=== PATIENT | male | born 1955 | race Two or more races ===

== ENCOUNTER 2020-04-27 20:09 | Emergency (ER) | payer MEDICAID ==
[~2020-04-27] VITALS: Ht 165.1 cm; Wt 61.2 kg
--- NOTE | 2020-04-27 20:30 | NUR ---
ED Nurse Note: Patient walked into the ED from home with c/o nausea and vomiting onset 3 days. Pt stated he wasnt able to eat and was feeling weak but denies flu like s/sx. Pt stated nausea is caused when he moves his head. Pt denies injury or trauma, denies CP//SOB, N/V/D, fever or chills. Pt is AAOX4 and ambulatory. Placed on monitor bed HPI: 64-year-old male no reported past medical history presents dizziness. He states it started last night. He has feeling of room spinning when he moves his head. Associated with nausea and vomiting. He denies any fevers cough or abdominal pain. He denies any medical history. Denies any headache chest pain or shortness of breath. Allergies:
--- NOTE | 2020-04-27 20:31 | NUR ---
ED Nurse Note: ERMD at bedside
--- NOTE | 2020-04-27 20:44 | Emergency Room Report ---
History of Present Illness General Chief Complaint: Vomiting Source: Patient Present Illness HPI Disclaimer: Please note that this report is being documented using DRAGON technology. This can lead to erroneous entry secondary to incorrect interpretation by the dictating instrument. HPI: 64-year-old male no reported past medical history presents dizziness. He states it started last night. He has feeling of room spinning when he moves his head. Associated with nausea and vomiting. He denies any fevers cough or abdominal pain. He denies any medical history. Denies any headache chest pain or shortness of breath. Allergies: Coded Allergies: No Known Allergies (Unverified , 04/27/20) COVID-19 Screening Contact w/high risk pt: No Experienced COVID-19 symptoms?: Yes COVID-19 Testing performed J[employer] CLE[employer]ER: No Patient History Reviewed Nursing Documentation: PMH: Agreed; PSxH: Agreed Nursing Documentation-PMH Past Medical History: No Stated History Review of Systems All Other Systems: negative except mentioned in HPI Physical Exam Vital Signs Date Time Temp Pulse Resp B/P (MAP) Pulse Ox O2 Delivery O2 Flow Rate FiO2 04/27/20 20:29 98.4 67 20 149/86 (107) 95 Room Air Sp02 EP Interpretation: reviewed, normal General Appearance: well appearing, no apparent distress Head: normocephalic, atraumatic Eyes: bilateral eye PERRL, bilateral eye EOMI ENT: hearing grossly normal, moist mucus membranes Neck: full range of motion, supple Respiratory: lungs clear, normal breath sounds, no rhonchi, no respiratory distress, no retraction, no wheezing Cardiovascular #1: normal peripheral pulses, regular rate, rhythm, no murmur Gastrointestinal: non tender, soft, non-distended, no guarding Neurologic: alert, motor strength/tone normal, technical administrator III-XII nml as tested, oriented x3, cerebellar normal, nystagmus - Noted but fatigable, no focal defects Skin: normal color, warm/dry Medical Decision Making Diagnostic Impression: Primary Impression: Vertigo Additional Impression: Nausea and vomiting ER Course MDM: Differential included but not limited to positional vertigo, dehydration, gastroenteritis, gastritis to name a few Clinical course-IV inserted laboratory studies are sent CT scan ordered. CT scan did not show any acute abnormalities. Patient neurologically intact. Zofran and meclizine given in the ER. On reassessment patient feeling improved. No active vomiting. Ambulatory with a steady gait. We discharged with Zofran as needed, meclizine as needed and follow-up with PMD. Given return pr ecautions. Labs - Laboratory Tests Test 04/27/20 20:45 White Blood Count 11.3 K/UL (4.8-10.8) H Red Blood Count 5.36 M/UL (4.70-6.10) Hemoglobin 16.6 G/DL (14.2-18.0) Hematocrit 44.2 % (42.0-52.0) Mean Corpuscular Volume 82 FL (80-99) Mean Corpuscular Hemoglobin 30.9 PG (27.0-31.0) Mean Corpuscular Hemoglobin Concent 37.5 G/DL (32.0-36.0) H Red Cell Distribution Width 14.4 % (11.6-14.8) Platelet Count 277 K/UL (150-450) Mean Platelet Volume 7.9 FL (6.5-10.1) Neutrophils (%) (Auto) 72.8 % (45.0-75.0) Lymphocytes (%) (Auto) 19.4 % (20.0-45.0) L Monocytes (%) (Auto) 7.1 % (1.0-10.0) Eosinophils (%) (Auto) 0.0 % (0.0-3.0) Basophils (%) (Auto) 0.8 % (0.0-2.0) Sodium Level 136 MMOL/L (136-145) Potassium Level 3.7 MMOL/L (3.5-5.1) Chloride Level 101 MMOL/L (98-107) Carbon Dioxide Level 26 MMOL/L (21-32) Anion Gap 10 mmol/L (5-15) Blood Urea Nitrogen 13 mg/dL (7-18) Creatinine 1.1 MG/DL (0.55-1.30) Estimated Glomerular Filtration Rate > 60 mL/min (>60) Glucose Level 124 MG/DL (74-106) H Calcium Level 8.6 MG/DL (8.5-10.1) Total Bilirubin 0.5 MG/DL (0.2-1.0) Aspartate Amino Transferase (AST) 36 U/L (15-37) Alanine Aminotransferase (ALT) 36 U/L (12-78) Alkaline Phosphatase 109 U/L (46-116) Total Protein 8.2 G/DL (6.4-8.2) Albumin 3.7 G/DL (3.4-5.0) Globulin 4.5 g/dL Albumin/Globulin Ratio 0.8 (1.0-2.7) L Lipase 170 U/L (73-393) On reevaluation: Patient feeling improved Plan-discharge home, follow-up PMD CT/MRI/US Diagnostic Results CT/MRI/US Diagnostic Results : Imaging Test Ordered: CT brain Impression No acute process Last Vital Signs Date Time Temp Pulse Resp B/P (MAP) Pulse Ox O2 Delivery O2 Flow Rate FiO2 04/27/20 20:29 98.4 67 20 149/86 (107) 95 Room Air Status: improved Disposition: HOME, SELF-CARE Condition: Improved Scripts Meclizine Hcl* (MECLIZINE*) 25 Mg Tablet 25 MG ORAL THREE TIMES A DAY PRN for for dizziness, #20 TAB Prov: Sergio Jaime M.D. 04/27/20 Ondansetron (Zofran) 4 Mg Tablet 4 MG ORAL Q8H PRN for Nausea & Vomiting, #20 TAB 0 Refills Prov: Sergio Jaime M.D. 04/27/20 Sergio Jaime M.D. Apr 27, 2020 20:43
[2020-04-27] MEDS ORDERED: Meclizine 25mg tab ORAL ONE (20:45)
--- NOTE | 2020-04-27 20:45 | NUR ---
ED Nurse Note: Blood sent to lab
[2020-04-27 21:00] VITALS: BP 149/86
[2020-04-27 21:01] LABS: BASOPHILS % (AUTO) 0.8 % (0.0-2.0); HEMATOCRIT 44.2 % (42.0-52.0); HEMOGLOBIN 16.6 G/DL (14.2-18.0); LYMPHOCYTES % (AUTO) 19.4 % (20.0-45.0); MEAN CORPUSCULAR VOLUME 82 FL (80-99); MONOCYTES % (AUTO) 7.1 % (1.0-10.0); NEUTROPHILS % (AUTO) 72.8 % (45.0-75.0); PLATELET COUNT 277 K/UL (150-450); RED BLOOD COUNT 5.36 M/UL (4.70-6.10); RED CELL DISTRIBUTION WIDTH 14.4 % (11.6-14.8); WHITE BLOOD COUNT 11.3 K/UL (4.8-10.8)
--- NOTE | 2020-04-27 21:08 | NUR ---
ED Nurse Note: CT scan done
--- NOTE | 2020-04-27 21:09 | Diagnostic Imaging Report ---
EXAM: CT Head Without Intravenous Contrast CLINICAL HISTORY: VOMITING TECHNIQUE: Axial computed tomography images of the head/brain without intravenous contrast. CTDI is 53.4 mGy and DLP is 965.4 mGy-cm. One or more of the following dose reduction techniques were used: automated exposure control, adjustment of the mA and/or kV according to patient size, use of iterative reconstruction technique. COMPARISON: No relevant prior studies available. FINDINGS: Brain: Unremarkable. No hemorrhage. No significant white matter disease. No evidence of edema or mass-effect. No large vascular territory infarct. No dense arterial sign. Ventricles: Unremarkable. No ventriculomegaly. Bones/joints: Unremarkable. No acute fracture. Soft tissues: Unremarkable. Sinuses: Unremarkable as visualized. Mastoid air cells: No mastoid effusion. Orbits: Symmetric. IMPRESSION: Normal head/brain CT.
[2020-04-27 21:21] LABS: ANION GAP 10 mmol/L (5-15); BLOOD UREA NITROGEN 13 mg/dL (7-18); CALCIUM 8.6 MG/DL (8.5-10.1); CARBON DIOXIDE 26 MMOL/L (21-32); CHLORIDE 101 MMOL/L (98-107); CREATININE 1.1 MG/DL (0.55-1.30); POTASSIUM 3.7 MMOL/L (3.5-5.1); SODIUM 136 MMOL/L (136-145)
[2020-04-27 21:26] LABS: ALANINE AMINOTRANSFERASE 36 U/L (12-78); ALBUMIN 3.7 G/DL (3.4-5.0); ALBUMIN/GLOBULIN RATIO 0.8 (1.0-2.7); ALKALINE PHOSPHATASE 109 U/L (46-116); ASPARTATE AMINO TRANSFERASE 36 U/L (15-37); BILIRUBIN,TOTAL 0.5 MG/DL (0.2-1.0)
[2020-04-27] MEDS ORDERED: MECLIZINE HCL25 MG ORAL (21:41)
[2020-04-27] MEDS ORDERED: ZOFRAN4 MG ORAL (21:41)
[2020-04-27 22:05] VITALS: BP 141/79
--- NOTE | 2020-04-27 22:05 | NUR ---
ER DISCHARGE NOTE: Patient is cleared to be discharged per ERMD, pt is aox4, on room air, with stable vital signs. pt was given dc and prescription instructions, pt was able to verbalize understanding, pt id band and iv site removed without complications. pt is able to ambulate with steady gait. pt took all belongings.
== END 2020-04-27 22:00 | disposition home or self-care (01) ==
LOC: EMR 20:25
DX: R42 Dizziness and giddiness (principal); R11.2 Nausea with vomiting, unspecified
CPT/HCPCS: 36415; 70450; 80053; 83690; 85025; 96360; 96372; J2405; J7030; Z7502; 99284